=== PATIENT | female | born 1950 | race Caucasian/White ===

== ENCOUNTER 2016-12-12 08:23 | Emergency (ER) | payer MEDICAID, OTHER ==
[~2016-12-12] VITALS: Ht 149.9 cm; Wt 50.8 kg
--- NOTE | 2016-12-12 08:28 | NUR ---
Pt [id number]: chest pain x 3 hrs. nitro x 2, asa 162 given in field with help. Placed on monitor. Gowned pt. Comfort measures initiated. Awaiting md order
--- NOTE | 2016-12-12 08:31 | NUR ---
DR OLIVARES AT BEDSIDE FOR EVAL
[2016-12-12] MEDS ORDERED: ASPIRIN 325 MG TABLET ONE (08:32)
[2016-12-12] MEDS ORDERED: LORAZEPAM 1 MG TABLET ONE (08:32)
--- NOTE | 2016-12-12 08:35 | NUR ---
IV ACCESS STARTED. [employer] FORMER MACHINE OPERATOR AT FOR BLOOD DRAW.
[2016-12-12 08:59] LABS: BASOPHILS % (AUTO) 0.7 % (0.0-2.0); EOSINOPHILS # (AUTO) 0.3 /CMM (0.0-0.7); EOSINOPHILS % (AUTO) 5.1 % (0.0-6.0); HEMATOCRIT 34 % (33-45); HEMOGLOBIN 11.5 g/dL (11.5-14.8); LYMPHOCYTES # (AUTO) 1.7 /CMM (0.8-4.8); LYMPHOCYTES % (AUTO) 28.5 % (20.0-44.0); MEAN CORPUSCULAR HEMOGLOBIN 30 PG (26.0-33.0); MEAN CORPUSCULAR HGB CONC 34 g/dl (31.0-36.0); MEAN CORPUSCULAR VOLUME 88 fL (82-100); MONOCYTES # (AUTO) 0.5 /CMM (0.1-1.30); MONOCYTES % (AUTO) 7.4 % (2.0-12.0); NEUTROPHILS # (AUTO) 3.6 /CMM (1.8-8.9); NEUTROPHILS % (AUTO) 58.3 % (43.0-81.0); PLATELET COUNT (AUTO) 273 /CMM (150-450); RDW COEFFICIENT OF VARIATION 13.9 (11.5-15.0); RED BLOOD CELL COUNT(AUTO) 3.82 MIL/uL (4.0-5.2); WHITE BLOOD COUNT (AUTO) 6.1 K/uL (4.3-11.0)
[2016-12-12] MEDS ORDERED: LORAZEPAM 1 MG TABLET PO ONE (09:00)
[2016-12-12] MEDS ORDERED: ASPIRIN 325 MG TABLET PO ONE (09:00)
[2016-12-12 09:09] LABS: CALCIUM, SERUM 8.5 mg/dL (8.5-10.1); CARBON DIOXIDE 22 mmol/L (21-32); CHLORIDE 111 mmol/L (98-107); CREATININE 1.2 mg/dL (0.6-1.3); GLUCOSE 100 mg/dL (74-106); POTASSIUM 3.3 mmol/L (3.5-5.1); SODIUM SERUM 145 mmol/L (136-145); UREA NITROGEN, BLOOD 19 mg/dL (7-18)
[2016-12-12 09:15] LABS: ALANINE AMINOTRANSFERASE 23 U/L (12-78); ALBUMIN 3.3 g/dL (3.4-5.0); ALKALINE PHOSPHATASE 99 U/L (46-116); ASPARTATE AMINOTRANSFERASE 19 U/L (15-37); BILIRUBIN,DIRECT 0.1 mg/dL (0.0-0.2); BILIRUBIN,TOTAL 0.2 mg/dL (0.2-1.0); TOTAL PROTEIN, SERUM 6.8 g/dL (6.4-8.2)
[2016-12-12 09:17] LABS: TROPONIN I < 0.017 ng/mL (0.00-0.056)
[2016-12-12 09:20] LABS: PROTHROMBIN TIME 10.7 SECS (9.5-12.7)
--- NOTE | 2016-12-12 11:00 | NUR ---
ASSUME PT CARE. RESTING IN BED. HERE FOR PRESSURE LIKE CHEST PAIN SINCE YESTERDAY. SEEN AND EVALUATED BY ERMD. SLEEPING. EASILY AROUSABLE. 10/19 PAIN. WILL CONTINUE TO MONITOR.
--- NOTE | 2016-12-12 12:26 | NUR ---
FLITCH HANGER AT BEDSIDE FOR REPEAT TROP DRAW.
[2016-12-12 15:53] VITALS: BP 132/87
--- NOTE | 2016-12-12 15:53 | NUR ---
Patient discharged to home in stable condition. Written and verbal after care instructions given. Patient verbalizes understanding of instruction.IV removed. Catheter intact and site benign. Pressure and 4x4 applied to site. No bleeding noted.
== END 2016-12-12 15:54 | disposition home or self-care (01) ==
LOC: ER 08:25
DX: R10.13 Epigastric pain (principal); R07.9 Chest pain, unspecified; I10 Essential (primary) hypertension; F41.9 Anxiety disorder, unspecified; F17.210 Nicotine dependence, cigarettes, uncomplicated; E11.9 Type 2 diabetes mellitus without complications; Z79.82 Long term (current) use of aspirin; Z85.3 Personal history of malignant neoplasm of breast; Z90.710 Acquired absence of both cervix and uterus
CPT/HCPCS: 36415; 71010; 80048; 80076; 84484 ×2; 85025; 85730; 93005; 99285; A4606; Z7610